=== PATIENT | female | born 1975 | race Two or more races ===

== ENCOUNTER 2016-05-16 13:18 | Emergency (ER) | payer BC, MEDICAID ==
[2016-05-16 13:40] VITALS: BP 183/116
--- NOTE | 2016-05-16 13:42 | ER Document Report ---
ED Medical Screen (RME) - General Stated Complaint: CHEST PAIN Mode of Arrival: Ambulatory Information source: Patient Notes: Patient presents to the emergency department with right-sided chest pain that started yesterday. She also reports some nausea. Denies cardiac history has history of high blood pressure does not take medication does not smoke. Denies family history of cardiac disease. Patient went to urgent care was given some aspirin and sent to the emergency department. Patient reports increased pain with movement - Related Data Allergies/Adverse Reactions: ampicillin [Ampicillin] Allergy (Severe, Verified 05/16/16 13:37) throat tightening difficulty breathing Past Medical History - Immunizations Hx Diphtheria, Pertussis, Tetanus Vaccination: Yes - 09/10/12
[2016-05-16 14:05] LABS: ABSOLUTE BASOPHILS # (AUTO) 0.1 10^3/uL (0.0-0.2); ABSOLUTE LYMPHOCYTES (AUTO) 1.8 10^3/uL (0.5-4.7); ABSOLUTE MONOCYTES (AUTO) 1.4 10^3/uL (0.1-1.4); ABSOLUTE NEUT (AUTO) 8.2 10^3/uL (1.7-8.2); BASOPHILS % (AUTO) 0.4 % (0-2); EOSINOPHILS % (AUTO) 0.1 % (0-6); HEMATOCRIT 42.6 % (36.0-47.0); HEMOGLOBIN 14.4 g/dL (12.0-15.5); HGB HCT DIFFERENCE 0.6; LYMPHOCYTES % (AUTO) 15.5 % (13-45); MEAN CORPUSCULAR HGB CONC 33.7 g/dL (32.0-36.0); MEAN CORPUSCULAR VOLUME 92 fl (80-97); MONOCYTES % (AUTO) 12.2 % (3-13); RED BLOOD COUNT 4.63 10^6/uL (3.72-5.28); RED CELL DISTRIBUTION WIDTH 13.7 % (11.5-14.0); SEGMENTED NEUTROPHILS % (AUTO) 71.8 % (42-78); WHITE BLOOD COUNT 11.4 10^3/uL (4.0-10.5)
[2016-05-16 14:15] LABS: APPEARANCE,URINE SLIGHTLY-CLOUDY; BILIRUBIN,URINE NEGATIVE (NEGATIVE); GLUCOSE, URINE NEGATIVE (NEGATIVE); KETONES,URINE NEGATIVE (NEGATIVE); LEUKOCYTE ESTERASE,URINE NEGATIVE (NEGATIVE); NITRITE,URINE NEGATIVE (NEGATIVE); PROTEIN,URINE 100 mg/dL (NEGATIVE); URINE SPECIFIC GRAVITY 1.017; UROBILINOGEN,URINE NEGATIVE mg/dL (<2.0)
[2016-05-16 14:19] LABS: ALANINE AMINOTRANSFERASE 30 U/L (9-52); ALBUMIN 4.1 g/dL (3.5-5.0); ALKALINE PHOSPHATASE 93 U/L (38-126); ANION GAP 13 (5-19); ASPARTATE AMINO TRANSFERASE 22 U/L (14-36); BILIRUBIN,TOTAL 0.6 mg/dL (0.2-1.3); BLOOD UREA NITROGEN 11 mg/dL (7-20); CALCIUM 9.1 mg/dL (8.4-10.2); CARBON DIOXIDE 27 mmol/L (22-30); CHLORIDE 101 mmol/L (98-107); CREATINE KINASE 84 U/L (30-135); CREATININE RESULT 0.54 mg/dL (0.52-1.25); GLUCOSE 98 mg/dL (75-110); POTASSIUM 3.5 mmol/L (3.6-5.0); SODIUM 140.9 mmol/L (137-145); TOTAL PROTEIN 7.7 g/dL (6.3-8.2)
[2016-05-16 14:31] LABS: CREATINE KINASE MB < 0.22 ng/mL (<4.55); TROPONIN I < 0.012 ng/mL
--- NOTE | 2016-05-16 16:03 | ER Document Report ---
ED General - General Chief Complaint: Chest Pain Stated Complaint: CHEST PAIN Mode of Arrival: Ambulatory Information source: Patient Notes: 40 yr old female presents with complaitns of right shoulder pain that worsened with taking in deep breaths and turning to the side. pt denies any chest pain, deneis any sob. pt denies any dvt or pe risk factors TRAVEL OUTSIDE OF THE [place] IN LAST 30 DAYS: No - HPI Onset: Just prior to arrival Onset/Duration: Sudden Quality of pain: Sharp Severity: Mild Pain Level: 1 Associated symptoms: Shortness of breath Exacerbated by: Denies Relieved by: Denies Similar symptoms previously: No Recently seen / treated by doctor: No - Related Data Allergies/Adverse Reactions: ampicillin [Ampicillin] Allergy (Severe, Verified 05/16/16 13:37) throat tightening difficulty breathing Past Medical History - General Information source: Patient - Social History Smoking Status: Never Smoker Cigarette use (# per day): No Chew tobacco use (# tins/day): No Smoking Education Provided: No Frequency of alcohol use: Social Drug Abuse: None Family History: Reviewed & Not Pertinent Patient has suicidal ideation: No Patient has homicidal ideation: No Renal/ Medical History: Denies: Hx Peritoneal Dialysis - Immunizations Hx Diphtheria, Pertussis, Tetanus Vaccination: Yes - 09/10/12 Review of Systems - Review of Systems Notes: REVIEW OF SYSTEMS: CONSTITUTIONAL : Denies fever, chills, or sweats. Denies recent illness. EENT: Denies eye, ear, throat, or mouth pain or symptoms. Denies nasal or sinus congestion or discharge. Denies throat, tongue, or mouth swelling or difficulty swallowing. CARDIOVASCULAR: Denies chest pain. Denies palpitations or racing or irregular heart beat. Denies ankle edema. RESPIRATORY: right chest pain GASTROINTESTINAL: Denies abdominal pain or distention. Denies nausea, vomiting , or diarrhea. Denies blood in vomitus, stools, or per rectum. Denies black, tarry stools. Denies constipation. GENITOURINARY: Denies difficulty urinating, painful urination, burning, frequency, blood in urine, or discharge. FEMALE GENITOURINARY: Denies vaginal bleeding, heavy or abnormal periods, irregular periods. Denies vaginal discharge or odor. MUSCULOSKELETAL: Denies back or neck pain or stiffness. Denies joint pain or swelling. SKIN: Denies rash, lesions or sores. HEMATOLOGIC : Denies easy bruising or bleeding. LYMPHATIC: Denies swollen, enlarged glands. NEUROLOGICAL: Denies confusion or altered mental status. Denies passing out or loss of consciousness. Denies dizziness or lightheadedness. Denies headache. Denies weakness or paralysis or loss of use of either side. Denies problems with gait or speech. Denies sensory loss, numbness, or tingling. Denies seizures. PSYCHIATRIC: Denies anxiety or stress. Denies depression, suicidal ideation, or homicidal ideation. ALL OTHER SYSTEMS REVIEWED AND NEGATIVE. Dictation was performed using [employer] recognition software PHYSICAL EXAMINATION: GENERAL: Well-appearing, well-nourished and in no acute distress. HEAD: Atraumatic, normocephalic. EYES: Pupils equal round and reactive to light, extraocular movements intact, conjunctiva are normal. ENT: Nares patent, oropharynx clear without exudates. Moist mucous membranes. NECK: Normal range of motion, supple without lymphadenopathy LUNGS: Breath sounds clear to auscultation bilaterally and equal. No wheezes rales or rhonchi. pain reproduced with coughing HEART: Regular rate and rhythm without murmurs ABDOMEN: Soft, nontender, nondistended abdomen. No guarding, no rebound. No masses appreciated. Female : deferred Musculoskeletal: Normal range of motion, no pitting or edema. No cyanosis. NEUROLOGICAL: Cranial nerves grossly intact. Normal speech, normal gait. Normal sensory, motor exams PSYCH: Normal mood, normal affect. SKIN: Warm, Dry, normal turgor, no rashes or lesions noted. Physical Exam - Vital signs Vitals: Temp Pulse Resp BP Pulse Ox 98.9 F 88 20 183/116 H 97 05/16/16 13:37 05/16/16 13:37 05/16/16 13:37 05/16/16 13:37 05/16/16 13:37 Course - Re-evaluation Re-evalutation: 05/16/16 23:25 D-dimer chest x-ray were negative cardiac enzymes are normal patient's pain does not appear to be cardiac in nature however I have explained that this is not a full cardiac workup and that they will require cardiology follow-up as well After performing a Medical Screening Examination, I estimate there is LOW risk for RUPTURED ESOPHAGUS, PNEUMOTHORAX, PULMONARY EMBOLISM, ACUTE CORONARY SYNDROME, OR THORACIC AORTIC DISSECTION, thus I consider the discharge disposition reasonable. The patient and I have discussed the diagnosis and risks , and we agree with discharging home with close follow-up. We also discussed returning to the Emergency Department immediately if new or worsening symptoms occur. We have discussed the symptoms which are most concerning (e.g., bloody sputum, worsening pain or shortness of breath) that necessitate immediate return. - Vital Signs Vital signs: Temp Pulse Resp BP Pulse Ox 98.9 F 88 20 183/116 H 97 05/16/16 13:37 05/16/16 13:37 05/16/16 13:37 05/16/16 13:37 05/16/16 13:37 - Laboratory Result Diagrams: 05/16/16 13:45 05/16/16 13:45 Laboratory results interpreted by me: 05/16/16 05/16/16 05/16/16 13:45 13:45 13:45 WBC 11.4 H Potassium 3.5 L Urine Protein 100 H Urine Blood SMALL H - Diagnostic Test Radiology reviewed: Image reviewed, Reports reviewed - EKG Interpretation by Me EKG shows normal: Sinus rhythm, [place], Intervals, QRS Complexes Discharge - Discharge Clinical Impression: Costochondral chest pain HTN (hypertension) Qualifiers: Hypertension type: essential hypertension Qualified Code(s): I10 - Essential ( primary) hypertension Condition: Stable Disposition: HOME, SELF-CARE Instructions: Anti-Inflammatory Medication ([facility]), Chest Wall Pain ([facility]) Prescriptions: Naproxen 500 mg PO Q8 #30 tablet Forms: Return to Work Referrals: NUNU WILLOUGHBY MD [ACTIVE STAFF] - Follow up tomorrow
--- NOTE | 2016-05-17 15:00 | EKG REPORT ---
SEVERITY:- BORDERLINE ECG - SINUS RHYTHM BORDERLINE LEFT AXIS DEVIATION BORDERLINE T ABNORMALITIES, INFERIOR LEADS BORDERLINE PROLONGED QT INTERVAL : Confirmed by: Jimi Stanton 17-May-2016 15:00:06
== END 2016-05-16 16:19 | disposition home or self-care (01) ==
LOC: ER 13:18
DX: R07.1 Chest pain on breathing (principal); R07.9 Chest pain, unspecified; M25.511 Pain in right shoulder
CPT/HCPCS: 36415; 71020; 80053; 81001; 82550; 82553; 84484; 84703; 85025; 85379; 93005; 93010; 99285

== ENCOUNTER → 2019-05-26 | Outpatient (CLI) | payer BC, OTHER | LOC: OD 11:20 | PROVIDERS: ATTEND Family Medicine | DX: M89.8X6 Other specified disorders of bone, lower leg (principal) ==

== ENCOUNTER → 2019-11-30 | Outpatient (CLI) | payer OTHER ==
--- NOTE | 2019-11-30 14:44 | WOMENS IMAGING REPORT ---
EXAM DESCRIPTION: 3D SCREENING MAMMO BILAT IMAGES COMPLETED DATE/TIME: 11/30/2019 2:27 pm REASON FOR STUDY: Z12.31 ENCNTR SCREEN MAMMOGRAM FOR MALIGNANT NEOPLASM OF BREAST Z12.31 ENCNTR SCR EEN MAMMOGRAM FOR MALIGNANT NEOPLASM OF LIONEL COMPARISON: None. EXAM PARAMETERS: Views: Standard craniocaudal and mediolateral oblique views of each breast recorded using digital acquisition and breast tomosynthesis. Read with the assistance of CAD. .[facility] - [employer] Editor Version 9.2 LIMITATIONS: None. FINDINGS: No suspicious masses, suspicious calcifications or architectural distortion. No areas of c oncern. IMPRESSION: NEGATIVE MAMMOGRAM. BIRADS 1. BREAST DENSITY: b. There are scattered areas of fibroglandular density. BIRAD: ASSESSMENT: 1 NEGATIVE RECOMMENDATION: ROUTINE SCREENING COMMENT: The patient has been notified of the results by letter per MQSA requirements. Additional no tification policies are in place for contacting patient with suspicious or incomplete findings. Quality ID #[id number]: The [employer] recommends an annual screening mammogram for women aged 40 years or over. This facility utilizes a reminder system to ensure that all patients receive reminder letters, and/or direct phone calls for appointments. This includes reminders for routine scr eening mammograms, diagnostic mammograms, or other Breast Imaging Interventions when appropriate. Th is patient will be placed in the appropriate reminder system. TECHNICAL DOCUMENTATION: FINDING NUMBER: (1) ASSESSMENT: (1) JOB ID: [id number] 2010 [employer]- All Rights Reserved Reading location - IP/workstation name: [email or web address]
== END ==
LOC: WI 13:52
PROVIDERS: ATTEND Nurse Practitioner Family
DX: Z12.31 Encounter for screening mammogram for malignant neoplasm of breast (principal)
CPT/HCPCS: 77063; 77067